=== PATIENT | female | born 1965 | race Caucasian/White ===

== ENCOUNTER 2016-09-26 19:47 | Emergency (ER) | payer OTHER ==
[~2016-09-26] VITALS: Ht 170.2 cm; Wt 87.8 kg
[2016-09-26 20:29] LABS: HEMATOCRIT 38.7 % (36.0-46.0); MCH 30.3 PG (29.0-34.0); MCHC 32.8 G/DL (30.0-36.0); MCV 92.4 FL (83-99); RBC DIS.WIDTH-CV 12.9 % (11.8-14.6); RBC DIS.WIDTH-SD 43.4 % (39-53); RED BLOOD COUNT 4.19 M/uL (3.80-5.20); WHITE BLOOD COUNT 9.1 K/uL (4.1-10.2)
[2016-09-26 20:38] LABS: CHLORIDE 109 mEq/L (99-109); POTASSIUM 4.3 mEq/L (3.7-5.4); SODIUM 140 mEq/L (136-147)
[2016-09-26 20:40] LABS: GLUCOSE 94 mg/dL (70-99)
[2016-09-26 20:41] LABS: ANION GAP 9 MEQ/L (2-14)
[2016-09-26 20:44] LABS: GFR ESTIMATE (CALCULATED) > 59 mL/min/; UREA NITROGEN (BUN) 23 mg/dL (9-23)
[2016-09-26 21:09] LABS: MEAN PLAT.VOLUME 11.2 uM^3 (9.5-12.4); PLATELET COUNT 225 K/uL (156-360)
[2016-09-26] MEDS ORDERED: PERCOCET 5/31 TABLET PO (22:12)
[2016-09-26 22:16] VITALS: BP 143/83
== END 2016-09-26 22:17 | disposition home or self-care (01) ==
LOC: EME 19:47
DX: S49.92XA Unspecified injury of left shoulder and upper arm, initial encounter (principal); M25.512 Pain in left shoulder; S09.90XA Unspecified injury of head, initial encounter; V80.010A Animal-rider injured by fall from or being thrown from horse in noncollision accident, initial encounter; Y93.52 Activity, horseback riding
CPT/HCPCS: 70450; 71020; 73030; 80048; 85027; 99281; 99284